=== PATIENT | male | born 1995 | race Caucasian/White ===

== ENCOUNTER 2022-04-03 09:51 | Emergency (ER) | payer OTHER ==
[2022-04-03] MEDS ORDERED: KETOROLAC 15 MG/ML 1 ML VIAL IM STA (10:09)
[2022-04-03 10:11] VITALS: TEMP 98.2
--- NOTE | 2022-04-03 10:29 | XR ---
EXAMINATION TYPE: XR wrist complete RT DATE OF EXAM: 04/03/2022 CLINICAL HISTORY: pain TECHNIQUE: Frontal, lateral and oblique images of the right wrist are obtained. COMPARISON: None. FINDINGS: Comminuted and displaced fracture distal radius with intra-articular extension. Soft tissue deformity and angulation seen. IMPRESSION: Distal radial fracture as noted
[2022-04-03] MEDS ORDERED: SODIUM CHLORIDE 0.9% 1,000 ML IV STA (12:36)
[2022-04-03] MEDS ORDERED: PROPOFOL 10 MG/ML 20 ML VIAL IV ONE ×3 (12:36→13:31)
[2022-04-03] MEDS ORDERED: HYDROmorphone 0.5 MG/0.5 ML SYRINGE IVP STA (13:28)
--- NOTE | 2022-04-03 13:50 | XR ---
EXAMINATION TYPE: XR wrist limited RT DATE OF EXAM: 04/03/2022 CLINICAL HISTORY: Post reduction TECHNIQUE: 2 postreduction views of the right wrist submitted. COMPARISON: None. FINDINGS: Overlying cast material obscures fine bony detail. Distal radial fracture is again noted with only sl ight improvement in alignment following reduction. No additional fracture seen. IMPRESSION: As above
[2022-04-03 14:19] VITALS: BP 135/71; PULSE 60; RESP 18
--- NOTE | 2022-04-03 14:25 | ED ---
General Adult HPI - General Source: patient Mode of arrival: ambulatory Limitations: no limitations <Zia Yun - Last Filed: 04/03/22 18:55> <Jm Noel - Last Filed: 04/03/22 22:22> - General Chief complaint: Extremity Injury, Upper Stated complaint: Broken arm Time Seen by Provider: 04/03/22 10:09 - History of Present Illness Initial comments: Patient is a 27-year-old male presenting with chief complaint of right wrist pain. Patient had a FOOSH when he fell off his skateboard last night. He rep orts pain and swelling. There is an obvious deformity of the wrist. He denies any numbness, tingling, discoloration. (Zia Yun) - Related Data Home Medications Medication Instructions Recorded Confirmed No Known Home Medications 12/28/15 12/28/15 Allergies Allergy/AdvReac Type Severity Reaction Status Date / Time No Known Allergies Allergy Verified 04/03/22 10:10 Review of Systems ROS Other: All systems not noted in ROS Statement are negative. <Zia Yun - Last Filed: 04/03/22 18:55> ROS Other: All systems not noted in ROS Statement are negative. <Jm Noel - Last Filed: 04/03/22 22:22> ROS Statement: Those systems with pertinent positive or pertinent negative responses have been documented in the HPI. Past Medical History Past Medical History: No Reported History History of Any Multi-Drug Resistant Organisms: None Reported Past Surgical History: No Surgical Hx Reported Past Psychological History: No Psychological Hx Reported, Bipolar Smoking Status: Never smoker Past Alcohol Use History: None Reported Past Drug Use History: Marijuana <Zia Yun - Last Filed: 04/03/22 18:55> General Exam Limitations: no limitations General appearance: alert, in no apparent distress Head exam: Present: atraumatic, normocephalic, normal inspection Eye exam: Present: normal appearance, EOMI. Absent: scleral icterus, periorbital swelling Neck exam: Present: normal inspection Right Hand Wrist exam: Present: tenderness, swelling, deformity. Absent: full ROM Vascular: Present: radial pulse (2+). Absent: vascular compromise Neurological exam: Present: alert, oriented X3, CN II-XII intact Psychiatric exam: Present: normal affect, normal mood Skin exam: Present: warm, dry, intact, normal color. Absent: rash <YunZia - Last Filed: 04/03/22 18:55> Course Vital Signs 04/03/22 04/03/22 04/03/22 10:07 13:10 13:15 Temperature 98.2 F Pulse Rate 96 87 81 Respiratory 18 20 18 Rate Blood Pressure 132/77 136/76 126/83 O2 Sat by Pulse 98 100 99 Oximetry 04/03/22 04/03/22 04/03/22 13:20 13:25 13:30 Temperature Pulse Rate 65 60 62 Respiratory 20 18 18 Rate Blood Pressure 124/82 138/91 149/85 O2 Sat by Pulse 99 96 98 Oximetry 04/03/22 04/03/22 13:45 14:15 Temperature Pulse Rate 61 60 Respiratory 16 18 Rate Blood Pressure 142/76 135/71 O2 Sat by Pulse 96 Oximetry Procedures - Matthews Protocol (Time Out) Procedure Performed:: moderate conscious sedation for reduction of right wrist Performing Provider: Jm Noel Nurse: Leisa Vega Respiratory Therapist: Arlin Busch Patient Identification (2 identifiers required): Verbal, Arm Band, Name, Birthdate Patient/Legal Yard Jacker has Confirmed: Site, Procedure, Consent Site: right wrist Site Marked: Yes Site Verified With Patient/Guardian: Yes Final Confirmation: Site, Patient Position, Radiographs, Confirmed w/Provider <Zia Yun - Last Filed: 04/03/22 18:55> - Orthopedic Fracture Reduction Fracture #1 Consent Obtained: verbal consent Side: right Fracture Reduction Location: radius Analgesia: procedural sedation Technique: direct manipulation, traction/counter-traction Post Reduction X-rays Demonstrate: other (partial reduction, continued displacement. easily slides from anatomical reduction.) Post-Reduction Neuro Exam: intact Post-Reduction Vascular Exam: intact Splint Applied: Yes Patient Tolerated Procedure: well - Procedural Sedation Procedural Sedation Start Time: 13:11 Procedural Sedation Stop Time: 13:20 Indications: fracture/dislocation reduction ASA Class: I Mallampati Airway Score: 2 Preparation: campus monitor applied, pulse oximeter, supplemental O2 applied, suction/airway equipment at bedside, IV secured IV Propofol Dose (mgs): 165 Complications: none Patient Tolerated Procedure: well <Jm Noel - Last Filed: 04/03/22 22:22> - Orthopedic Fracture Reduction Fracture #1 Additional Comments: neurovascularly intact post-reduction. (Jm Noel) Medical Decision Making <Zia Yun - Last Filed: 04/03/22 18:55> - Medical Decision Making Patient is a 27-year-old male presenting for evaluation of right wrist pain. Patient fell off of his skateboard yesterday landing on outstretched hand. Examination there is a visible deformity, patient does not a full range of motion. Patient is able to move all his fingers. He has good cap refill and 2+ radial pulse. Full sensation intact. X-ray notes a comminuted and displaced fracture of the distal radius with intra-articular extension. Reduction under conscious sedation was performed with Dr. Noel, post reduction x-rays show only slight improvement in alignment. I spoke with Melony Fierro from Dr. Alvarado's office, who advised follow-up with Dr. Smith from [facility] in one to 2 days for surgical fixation. Advised on supportive treatment with Motrin and Tylenol, rest, ice, elevation. Discussed alarm symptoms and return parameters. Report back to ER with any new or worsening symptoms. Patient conveyed verbal understanding and agreed to the plan. I discussed this case with my attending Dr. Noel. (Zia Yun) Disposition Is patient prescribed a controlled substance at d/c from ED?: No Time of Disposition: 15:18 <Zia Yun - Last Filed: 04/03/22 18:55> Is patient prescribed a controlled substance at d/c from ED?: No <Jm Noel - Last Filed: 04/03/22 22:22> Clinical Impression: Distal radius fracture Disposition: HOME SELF-CARE Condition: Good Instructions (If sedation given, give patient instructions): Wrist Fracture in Adults (ED), Moderate Sedation (ED) Additional Instructions: Call Dr. Smith's office tomorrow to follow-up in the next 1-2 days, as your injury will likely require surgical fixation. Take Motrin and Tylenol as needed for pain control. Rest, ice, elevate the limb. Report back to ER with any new or worsening symptoms. If hand begins to feel cold, numb, psinful, or as if there is increasing pressure, remove splint and report back to ER. Referrals: None,Stated [Primary Care Provider] - 1-2 days Anton Smith DO [REFERRING] - 1-2 days
== END 2022-04-03 15:51 | disposition home or self-care (01) ==
LOC: EC 09:51
DX: S52.501A Unspecified fracture of the lower end of right radius, initial encounter for closed fracture (principal); F31.9 Bipolar disorder, unspecified; F12.90 Cannabis use, unspecified, uncomplicated; V00.131A Fall from skateboard, initial encounter
CPT/HCPCS: 25605; 99152; 99284; 96374; 96372; 96361 ×3; 73100; 73110; J1885; J2704; J1170